=== PATIENT | female | born 1960 | race Caucasian/White ===

== ENCOUNTER 2024-12-09 08:51 | Emergency (ER) | payer BC, SELFPAY ==
[2024-12-09 08:54] VITALS: BP 115/69; PULSE 86; RESP 18; TEMP 36.8; O2SAT 97; BMI 22.7
[2024-12-09 09:24] LABS: MANUAL DIFF FLAG NO
[2024-12-09 09:26] LABS: Hematocrit 39.4 % (37.0-47.0); Hemoglobin 13.4 g/dl (12.0-16.0); Imm Gran Abs Auto 0.02 X10*3/uL (0.00-0.03); Imm Gran Pct Auto 0.3 % (0.0-0.4); Lymphocytes Absolute Auto 0.8 X10*3/uL (1.2-4.9); Mean Corpuscular HGB Conc 34.0 g/dl (31.0-35.0); Mean Corpuscular Hemoglobin 30.6 pg (27.0-33.0); Mean Corpuscular Volume 90.0 fL (80.0-98.0); NRBC Abs Auto 0.000 X10*3/uL (0.0-0.012); NRBC Pct Auto 0.0 /100WBC (0.0-0.2); Platelet Count 208 X10*3/uL (160-400); Red Blood Count 4.38 X10*6/uL (4.20-5.50); White Blood Count 5.9 X10*3/uL (4.8-10.8)
[2024-12-09 09:42] LABS: Alanine Aminotransferase 32 U/L (0-31); Albumin Level 4.4 g/dL (3.5-5.0); Alkaline Phosphatase 62 U/L (39-117); Anion Gap 8 (12-20); Aspartate Amino Transferase 31 U/L (5-31); Blood Urea Nitrogen 9 mg/dL (9-16); Calcium 9.4 mg/dL (8.4-10.2); Carbon Dioxide 29 mmol/L (22-29); Chloride 104 mmol/L (96-108); Creatinine Clr Calc Pharmacy 70.4; Estimated Glomerular Filt Rate > 60; Potassium 3.8 mmol/L (3.3-5.1); Sodium 137 mmol/L (135-145); Total Protein 6.6 g/dL (6.5-8.0)
[2024-12-09 09:52] LABS: IDNOW Serial# 58CA691E
[2024-12-09 09:53] LABS: COVID-19 Test Negative (Negative); IDNOW Serial# 55D5AD1C; Influenza B2 Negative (Negative)
--- NOTE | 2024-12-09 12:25 | ED.GENADULT ---
HPI - General Adult General Chief complaint: General Medical Stated complaint: Cellulitis L arm Time Seen by Provider: 12/09/24 12:25 Source: patient, RN notes reviewed and old records reviewed Mode of arrival: ambulatory Limitations: no limitations History of Present Illness ED Provider: Yanet [facility] narrative: Patient is a 64-year-old female presenting to the ED for evaluation of erythema to left axilla as well as fever last night. Tmax of 101. 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 Reports tick bite to left axilla, which then developed into bullseye. She went to urgent care yesterday and was started on doxycycline and keflex, had labs and tick panel drawn. Has taken 3 total doses of doxy and two doses of keflex. MD complaint: axillary erythema Onset (ago): day(s) Related Data Allergies Allergy/AdvReac Type Severity Reaction Status Date / Time No Known Allergies Allergy Verified 12/09/24 08:59 Review of Systems Review of Systems: as per hpi Yes all other systems are reviewed and are negative Constitutional: Constitutional: Reports as per HPI Physical Exam ED Vital Signs: Vital Signs - 24 hr 12/09/24 08:54 Temperature 98.3 F Pulse Rate 86 Respiratory Rate 18 Blood Pressure 115/69 Pulse Oximetry 97 Oxygen Delivery Method Room Air BMI result Body Mass Index 22.7 Vital signs have been reviewed and appear to be correct. Blood pressure normal. Heart rate normal. Respiratory rate normal. Temperature normal. Oxygen saturation normal. Const General: cooperative, healthy appearing and no acute distress Orientation/consciousness: oriented to person, oriented to place, oriented to time and patient oriented x3 Limitations: no limitations [facility] Head: Yes normocephalic and Yes atraumatic Ears: external ears normal General nose exam: Normal external nose present Face and sinus: Yes face symmetric Mouth: oropharynx normal and moist mucous membranes Throat: Yes uvula midline Eyes Pupils: Equal, round and reactive pupils present Neck Neck: Yes normal visual inspection and Yes supple Chest Chest/axillae images:  1. erythema with mild swelling NOT outside outlined area, no discharge/drainage Resp Effort & Inspection: normal respiratory effort and able to speak in complete sentences Auscultation: clear to auscultation bilaterally Cardio Rate: regular rate Rhythm: regular rhythm Heart sounds: S1 normal heart sound present and S2 normal heart sound present GI Palpation (GI): Soft to palpation and nontender Auscultation: normoactive bowel sounds General: Yes no CVA tenderness Back/Spine/Pelvis Back: no CVA tenderness Skin General skin exam: elasticity normal and turgor normal Neuro General: oriented to person, oriented to place, oriented to time, patient oriented x3, moves all extremities, no focal motor deficits and CN's II-XI intact bilaterally Cranial nerves: Yes Equal, round and reactive pupils present Cognition (Neuro): normal cognition Extrem General: Yes full ROM, Yes no pedal edema and Yes no calf tenderness Psych Mental Status: mental status grossly normal Affect: normal affect Thought process: Normal thought process present Medical Decision Making Medical Decision Making [facility] Narrative: Patient is a 64-year-old female presenting to the ED for evaluation of erythema to left axilla as well as fever last night. On exam patient is awake, A+Ox3, VS WNL, afebrile, normal neurological exam without focal deficits, physical exam findings as above. Given reported symptoms and physical exam findings, initial differential includes but is not limited to erythema migrans, cellulitis. Labs notable for no leukocytosis, no other significant abnormalities. Patient afebrile here and has not taken any antipyretics today. Erythema is not extending beyond outlined area. She has only taken 3 doses of doxy and 2 doses of keflex. Do not feel she requires IV antibiotics at this time. Discussed with patient that she should monitor the outlined area at least once per day, and return if erythema extends beyond the outlined area, should also return for recurrent fevers. Follow up with PCP, as well as UC regarding tick panel results. Complete full courses of abx as prescribed. Patient verbalized understanding of and agreement with plan. Differential Diagnosis Differential Diagnoses: The differential diagnosis associated with the presentation includes as per [facility] Admission/Observation Consideration of admission/observation: Escalation of care including admission/observation considered Patient would have been admitted to the hospital and transferred to appropriate facility had their clinical presentation warranted hospital admission. Lab Data [facility] Lab Attestation statement: I reviewed the patient's lab results. as per [facility] 12/09/24 09:10 12/09/24 09:10 Labs: Lab Results 12/09/24 Range/Units 09:10 WBC 5.9 (4.8-10.8) X10*3/uL RBC 4.38 (4.20-5.50) X10*6/uL Hgb 13.4 (12.0-16.0) g/dl Hct 39.4 (37.0-47.0) % MCV 90.0 (80.0-98.0) fL MCH 30.6 (27.0-33.0) pg MCHC 34.0 (31.0-35.0) g/dl RDW 12.9 (11.0-16.0) % Plt Count 208 (160-400) X10*3/uL MPV 9.8 (9.4-12.3) fL Immature Gran % (Auto) 0.3 (0.0-0.4) % Neut % (Auto) 76.6 H (45-73) % Lymph % (Auto) 12.8 L (20-40) % [place] % (Auto) 9.1 (2-11) % Eos % (Auto) 0.5 (0-4) % Baso % (Auto) 0.7 (0-2) % Lymph # (Auto) 0.8 L (1.2-4.9) X10*3/uL [place] # (Auto) 0.5 (0.1-1.2) X10*3/uL Eos # (Auto) 0.0 (0.0-0.4) X10*3/uL Baso # (Auto) 0.0 (0.0-0.2) X10*3/uL Abs Immat Gran (auto) 0.02 (0.00-0.03) X10*3/uL Absolute Neuts (auto) 4.5 (2.0-8.3) x10*3/uL Absolute Nucleated RBC 0.000 (0.0-0.012) X10*3/uL Nucleated RBC % (auto) 0.0 (0.0-0.2) /100WBC Sodium 137 (135-145) mmol/L Potassium 3.8 (3.3-5.1) mmol/L Chloride 104 (96-108) mmol/L Carbon Dioxide 29 (22-29) mmol/L Anion Gap 8 L (12-20) BUN 9 (9-16) mg/dL Creatinine 0.65 (0.5-1.4) mg/dL Estim Creat Clear Calc 70.4 Estimated GFR > 60 Random Glucose 97 (60-115) mg/dL Calcium 9.4 (8.4-10.2) mg/dL Total Bilirubin 0.3 (0.0-1.0) mg/dL AST 31 (5-31) U/L ALT 32 H (0-31) U/L Alkaline Phosphatase 62 (39-117) U/L Total Protein 6.6 (6.5-8.0) g/dL Albumin 4.4 (3.5-5.0) g/dL COVID-19 ([place]) Negative (Negative) COVID-19 Clin Com See Note Influenza Type A (EBENEZER) Negative (Negative) Influenza Type B (EBENEZER) Negative (Negative) Influenza A & B Note See Note External Record Review External record reviewed: Inpatient record, Office record and Outpatient record Discharge Plan Discharge Clinical Impression: Cellulitis of axilla, left Patient Disposition: Home, Self-Care Instructions: Cellulitis (ED) Additional Instructions: You have been evaluated in the emergency department today for redness and swelling to your underarm, and are currently being treated for a skin infection, also known as cellulitis. If the area of inflammation was outlined today in the ER, please return to the ER immediately if the area of redness increases beyond the border. Please take your prescribed antibiotics as directed for the full course of the medication. You can use Tylenol or ibuprofen per package instructions every 6 hours as needed for pain or fever. If necessary, you can alternate these medications so that you can take one medication every 3 hours. For instance, at noon take ibuprofen, then at 3:00 p.m. take Tylenol, then at 6:00 p.m. take ibuprofen. Please schedule an appointment for follow-up with your primary care physician as soon as possible. Return to the emergency department if you experience recurrent vomiting, fevers greater than 100.4? F, increasing area of redness, warmth around the area, foul-smelling discharge from the area, increased tenderness around the area, or any other concerning symptoms.
--- NOTE | 2024-12-09 12:32 | PC.NURSE ---
Pt roomed to [facility]- right axilla to breas has a large red marked area with bullseye appearance- warm to touch skin intact- pt states she has been on cephalexin and doxy since seen at urgent care but it has worsened in 24 hours. Pt with fever 24 hours ago at home also. No N/V/D. VSS
[2024-12-09 12:37] VITALS: BP 129/89; PULSE 78; RESP 16; O2SAT 98
[2024-12-09 13:24] VITALS: BP 129/89; PULSE 78; RESP 16; TEMP 36.5; O2SAT 98
--- OUTSIDE RECORDS SUMMARY | 2024-12-09 14:25 | XMS_ITS | Encounter Summary ---
Author Organization [facility] Address [address] [place] [address] Phone Care Team Providers Care Remote Advisor Name Role Phone Isma Marquez MD Unavailable [phone] Akira Hudson MD Primary Care Provider + Encounter Details Date Type Department Care Team (Late st Contact Info) Description 10/23/2019 Procedure Pass [facility], [address] [address] Social History Tobacco Use Types Packs/Day Years Used Date Smoking Tobacco: Never Smokeless Tobacco: Never Alcohol Use Standard Drinks/Week Comments Yes 4 (1 standard drink = 0.6 oz pur e alcohol) 2 drinks twice a week Comments Unknown Sex and Gender Information Value Date Recorded Sex Assigned at Female 06/29/2020 8:03 PM EDT Legal Sex Female 9:37 AM EST Gender Identity Choose not to disclose 8:03 PM EDT Sexual Orientation Choose not to disclose 2020 8:03 PM EDT documented as of this encounter Plan of Treatment Not on file documented as of this encounter Visit Diagnoses Not on filedocumented in this encounter Care Teams Remote Advisor Relationship Specialty Start Date End Date Akira Hudson MD [address] [place] [address] PCP - General Family Medicine 02/04/19 Isma Marquez MD [address] [place] [phone] [email or web address] Orthopedic Surgeon Orthopedic Surgery 12/26/18 documented as of this encounter Additional Source Comments The information contained in this document represents components of the legal health record. It is not the complete legal health record.[facility]
--- OUTSIDE RECORDS SUMMARY | 2024-12-09 14:25 | XMS_ITS | Encounter Summary ---
Author Organization [facility] Address [address] [place] [address] Phone Care Team Providers Care Snowboarding Instructor Name Role Phone Isma Marquez MD Unavailable [phone] Akira Hudson MD Primary Care Provider + Encounter Details Date Type Department Care Team (Late st Contact Info) Description 10/28/2019 Ancillary Orders [facility],Outside Imaging [address] [place] [address] System, Provider Not In, [place] [address] Social History Tobacco Use Types Packs/Day Years [...] on file documented as of this encounter Results * MRI Lower Extremity Outside (No Interpretation) (07/31/2018 12:00 AM EDT) Narrative SYSTEMGENERATED, DOCUMENTATION - 10/28/2019 8:12 AM EDT This study is for PACS storage only and not for interpretation. us Provider Not In System PhD IMG OUTSIDE IMAGING W /OUT INTERPRETATION Final Result documented in this encounter Visit Diagnoses Not on filedocumented in this encounter Care Teams Snowboarding Instructor Relationship Specialty Start Date End Date Akira Hudson MD [address] [place] [address] PCP - General Family Medicine 02/04/19 Isma Marquez MD [address] [place] [phone] [email or web address] Orthopedic Surgeon Orthopedic Surgery 12/26/18 documented as of this encounter Additional Source Comments The information contained in this document represents components of the legal health record. It is not the complete legal health record.[facility]
--- OUTSIDE RECORDS SUMMARY | 2024-12-09 14:25 | XMS_ITS | Encounter Summary ---
Author Organization [facility] Address [address] [place] [address] Phone Care Team Providers Care Power Truck Driver Name Role Phone Stu Baron MD Primary Care Provide r Isma Marquez MD Unavailable [phone] Akira Hudson MD Primary Care Provider + Encounter Details Date Type Department Care Team (Late st Contact Info) Description 08/27/2017 Procedure Pass [facility] Imaging [address] [place] [address] Social History Tobacco Use Types Packs/Day Years Used Date Smoking Tobacco: Never Comments Unknown Sex and Gender Information Value [...] on filedocumented in this encounter Care Teams Power Truck Driver Relationship Specialty Start Date End Date Stu Baron MD PCP - General Internal Medicine 03/31/14 02/03/19 Akira Hudson MD [address] [place] [address] PCP - General Family Medicine 02/04/19 Isma Marquez MD [address] [place] [phone] [email or web address] Orthopedic Surgeon Orthopedic Surgery 12/26/18 documented as of this encounter Additional Source Comments The information contained in this document represents components of the legal health record. It is not the complete legal health record.[facility]
--- OUTSIDE RECORDS SUMMARY | 2024-12-09 14:25 | XMS_ITS | Clinical Summary ---
Author Organization [facility] [address] [facility] [facility] Address [address] [place] [address] Phone Care Team Providers Care Associate Theatre Professor Name Role Phone Akira Hudson MD Primary Care Provider [phone] (ENTOCORT EC) 3 mg 24 hr capsuleIndicati ons:Collagenous colitis,Irritab le bowel syndrome (IBS) Take 3 capsules (9 mg total) by mouth 1 (one) time each day in the morning. 90 each 5 03/27/2024 03/27/19 26 Active Encounters Date Type Department Care Team Description 10/10/2024 Telephone Gastroenterology - [address] [address] Martine Hall MD from Last 3 Months Social History Tobacco Use Types Packs/Day Years Used Date Smoking Tobacco: Never Assessed Comments Unknown Sex and Gender Information Value Date Recorded Sex Assigned at Not on file Legal Sex Female 1:16 PM EST Gender Identity Not on file Sexual Orientation Not on file Last Filed Vital Signs Vital Sign Reading Time Taken Comments Blood Pressure - - Pulse - - Temperature - - Respiratory Rate - - Oxygen Saturation - - Inhaled Oxygen Concentration - - Weight 60.3 kg (133 lb) 03/27/2024 8:00 AM EST Height 160 cm (5' 3 ) 03/27/2024 8:00 AM EST Body Mass Index 23.56 03/27/2024 8:00 AM EST Plan of Treatment Upcoming Encounters Date Type Department Care Team ([facility] st Contact Info) Description 04/23/2025 8:20 AM EST Office Visit Gastroenterology - [place] [address] [facility] [address] [place] [address] Liss Moody, GIULIA [address] [facility] [address] [place] [address] Health Maintenance Due Date Last Done Comments Breast Cancer Screening 1960 Colorectal Cancer Screening: Colonoscopy 1960 Falls Risk Assessment 02/15/2024 Hepatitis C Screening 02/15/2024 Osteoporosis Screening (Bone Density Screening) 02/15/2024 Social Influencers of Health Screening 02/15/2024 Depression Screening 03/12/2024 COVID-19 Vaccine ( season) 2024 01/26/2024, 01/29/2023, 01/19/2022, Additional history exists Influenza Vaccine (#1) 2024 , 01/17/2023, 12/14/2021, Additional history exists DTaP,Tdap,and Td Vaccines (4 - Td or Tdap) 06/17/2031 06/16/2021, 03/15/2011, 08/11/1999 RSV Immunization Adult Patients (1 - 1-dose 75+ series) 2033 Zoster Vaccines Completed 09/23/2021, 04/29/2021 Pneumococcal Vaccine: 50+ Years Completed 07/13/2023 HIB Vaccines Aged Out No longer eligi ble based on patient's age to complete this topic HPV Vaccines Aged Out No longer eligi ble based on patient's age to complete this topic Hepatitis A Vaccines Aged Out No long er eligible based on patient's age to complete this topic Hepatitis B Vaccines Aged Out No long er eligible based on patient's age to complete this topic IPV Vaccines Aged Out No longer eligi ble based on patient's age to complete this topic MMR Vaccines Aged Out No longer eligi ble based on patient's age to complete this topic Meningococcal ACWY Vaccine Aged Out N o longer eligible based on patient's age to complete this topic Meningococcal B Vaccine Aged Out No l onger eligible based on patient's age to complete this topic RSV Immunization Patients Under 20 months Aged Out No longer eligible based on patient's age to complete this topic Varicella Vaccines Aged Out No longer eligible based on patient's age to complete this topic Insurance MEDICARE [facility] Care Teams Associate Theatre Professor Relationship Specialty Start Date End Date Akira Hudson MD [address] [facility] [address] [place] [address] PCP - General Family Medicine 03/21/24
--- OUTSIDE RECORDS SUMMARY | 2024-12-09 14:25 | XMS_ITS | Clinical Summary ---
Author Organization [facility] Address [address] [place] [address] Phone Care Team Providers Care American Studies Professor Name Role Phone Isma Marquez MD Unavailable [phone] Akira Hudson MD Primary Care Provider + Allergies No known active allergies Medications CALCIUM CARBONATE (TUMS E-X ORAL) Dose: Not available; Form: Not available; Route: PO; Frequency: Not available; Directions: Not available; Details: Not available; Date: 05/08/2014 5 Active clobetasol (TEMOVATE) 0.05 % cream Apply 1 application topically 2 (two) times a day. 5 Active estradiol (ESTRACE) 0.01 % (0.1 mg/gram) vaginal cream Place 1 g vaginally every 7 days. 5 Active cyanocobalamin 100 MCG tablet Take 1 tablet by mouth daily. 5 Active cholecalciferol (VITAMIN D3) 400 unit tablet Take 1 tablet by mouth daily. 5 Active cholestyramine (QUESTRAN) 4 gram packet Take 1 packet by mouth 2 (two) times a day with meals. Active Lactobacillus rhamnosus GG (CULTURELLE PROBIOTIC) 15 billion cell CpSP Take 1 capsule by mouth daily. Active acetaminophen (TYLENOL) 500 mg capsule Take 2 capsules (1,000 mg total) by mouth every 6 (six) hours as needed for fever. 30 capsule 8 Active aspirin 325 MG tablet Take 1 tablet (325 mg total) by mouth daily. 26 tablet 8 Active oxyCODONE 5 MG immediate release tablet Take 1 tablet (5 mg total) by mouth every 4 (four) hours as needed for moderate pain. Pt. may request partial fill Earliest Fill Date: 10/11/17 10 tablet 8 Active Additional Information Patient not taking.Reported on 11/19/2017 docusate sodium (COLACE) 100 MG capsule Take 1 capsule (100 mg total) by mouth 2 (two) times a day. 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 Lipoma of right lower extremity 10/09/2017 Endometriosis 05/08/2014 Overview (02/16/2015): Endometriosis Lichen sclerosus et atrophicus 04/29/2014 Overview (05/01/2014): Lichen sclerosus et atrophicus Immunizations Immunization Administration Dates Next Due COVID-19 (Pre-01/01) Pfizer Vaccine, mRNA, PF ,06/10/2020 Family History Medical History Relation Comments Uncoded Family History Mother Malignant tumor of vulva Relation Status Comments Mother Cause of : Malignant tumor of vulva Social History Tobacco Use Types Packs/Day Years Used Date Smoking Tobacco: Never Smokeless Tobacco: Never Alcohol Use Standard Drinks/Week Comments Yes 4 (1 standard drink = 0.6 oz pur e alcohol) 2 drinks twice a week Education Answer Date Recorded Are you interested in more education? Not on navarro e 07/07/2022 Are you concerned about learning? Not on file 07/07/2022 No 07/07/2022 No 07/07/2022 Digital Access Answer Date Recorded No 08/06/2022 No 08/06/2022 Reliable internet access at home? Not on file 08/06/2022 Device with a working camera? Not on file Comments Unknown Sex and Gender Information Value Date Recorded Sex Assigned at Female 06/29/2020 8:03 PM EDT Legal Sex Female 9:37 AM EST Gender Identity Choose not to disclose 8:03 PM EDT Sexual Orientation Choose not to disclose 2020 8:03 PM EDT Last Filed Vital Signs Vital Sign Reading Time Taken Comments Blood Pressure 106/62 10/11/2017 7:48 AM EDT Pulse 89 10/11/2017 7:48 AM EDT Temperature 36.4 C (97.6 F) 10/11/2017 7:48 AM EDT Respiratory Rate 18 10/11/2017 7:48 AM EDT Oxygen Saturation 98% 10/11/2017 7:48 AM EDT Inhaled Oxygen Concentration - - Weight 55.8 kg (123 lb) 10/27/2019 3:37 PM EDT Height 160 cm (5' 3 ) 10/27/2019 3:37 PM EDT Body Mass Index 21.79 10/27/2019 3:37 PM EDT Plan of Treatment Health Maintenance Due Date Last Done Comments LIPID PANEL 1960 DEPRESSION SCREENING 1970 HEPATITIS C SCREENING 1976 MAMMOGRAM 1998 COLOGUARD 07/12/2003 COLONOSCOPY 07/12/2003 COLORECTAL CANCER SCREENING 07/12/2003 FIT TEST 07/12/2003 FOBT 07/12/2003 SIGMOIDOSCOPY 07/12/2003 VIRTUAL COLONOSCOPY 07/12/2003 PNEUMOCOCCAL VACCINES (50+ years) (1 of 1 - PCV) 2008 OSTEOPOROSIS SCREENING INITIAL (ONE-TIME) 07/12/2023 INFLUENZA VACCINE (#1) 2024 2, 02/01/2021, 12/25/2019, Additional history exists COVID-19 VACCINE (2024- season) 2024 02/07/2021, 07/01/2020, 06/10/2020 Adult Td,Tdap Booster 06/17/2031 06/16/2021 , 03/15/2011, 08/11/1999 RSV VACCINE (1 - 1-dose 75+ series) 2033 SMOKING STATUS SCREENING (Once After 26 Yrs) Completed 01/21/2018 ZOSTER VACCINES Completed 09/23/2021, 04/29/2021 HEPATITIS A VACCINES Aged Out No long er eligible based on patient's age to complete this topic HIB VACCINES Aged Out No longer eligi ble based on patient's age to complete this topic MENINGOCOCCAL VACCINES (ACWY) Aged Out No longer eligible based on patient's age to complete this topic MENINGOCOCCAL VACCINES (B) Aged Out N o longer eligible based on patient's age to complete this topic Medical Devices Implanted Type Area Asp Net Programmer Device Identifier Shelf Expiration Date Model / Serial / Lot Plate Bone 73mm Tubular One Third With Collar Stainless Steel 6 Hole Ea - [id number] Implanted:Qty: 1 on 10/09/2017 by Isma Marquez MD at [facility] Right: Knee SYNTHES 241.36 / / Screw Bone 3.5x14mm Cortex Self Tapping Fully Threaded Hex Head S/S Ea - [id number] Implanted:Qty: 2 on 10/09/2017 by Isma Marquez MD at [facility] Right: Knee SYNTHES 204.814 / / Screw Bone 3.5x16mm Cortex Self Tapping Fully Threaded Hex Head S/S Ea - [id number] Implanted:Qty: 2 on 10/09/2017 by Isma Marquez MD at [facility] Right: Knee SYNTHES 204.816 / / Screw Bone 3.5x18mm Cortex Self Tapping Fully Threaded Hex Head S/S - [id number] Implanted:Qty: 1 on 10/09/2017 by Isma Marquez MD at [facility] Right: Knee SYNTHES 204.818 / / Screw Bone 3.5x20mm Cortex Self Tapping Fully Threaded Hex Head S/S - [id number] Implanted:Qty: 1 on 10/09/2017 by Isma Marquez MD at [facility] Right: Knee SYNTHES 204.820 / / Insurance [facility] Member Subscriber Plan / Payer (Ef fective 2021-Present) Name:Naomi Marquez Relation to Subscriber:Self Name:Naomi Marquez Payer ID:[id number] (NA) Type:HMO Address: [id number] [place] [address] [place] [address] [place] [address] [place] [address] [facility] Advance Directives For more information, please contact: [phone] (9AM - 5PM [place], Sunday-Sunday) * Full Code (Presumed) (Latest Code Status on File) Date Activated Date Inactivated Comments 10/09/2017 11:01 AM 10/11/2017 4:54 PM Care Teams American Studies Professor Relationship Specialty Start Date End Date Akira Hudosn MD [address] [place] [phone] PCP - General Family Medicine 02/04/19 Isma Marquez MD [address] [place] [phone] [email or web address] Orthopedic Surgeon Orthopedic Surgery 12/26/18 Additional Source Comments The information contained in this document represents components of the legal health record. It is not the complete legal health record.[facility]
--- OUTSIDE RECORDS SUMMARY | 2024-12-09 14:25 | XMS_ITS | Patient Health Record ---
Author Organization [facility] Address [address] [place] [address] Care Team Providers Care Steel Unloader Name Role Phone Akira Hudson MD Primary Care Provider Unava ilable Aaron Isaac Unavailable [phone] Reason For Referral No Information Medications Medication SIG (Take, Route, Frequency, Duration) Notes Start Date End Date Status Tylenol 1 tab Oral Active Motrin Active Excedrin Extra Strength 250-250-65 MG 2 tablets as needed Orally every 6 hrs Active Krill Oil 500 MG Orally Act james Vitamin D3 2000 UNIT 1 capsule Orally On ce a day Active Glucosamine Chondr 1500 Complx - Orally Active Social History Tobacco Use: Social History Observation Description Date Details (start date - stop date) Never Smoker NA - NA Tobacco Use/Smoking Question Answer Notes Are you a: nonsmoker Alcohol Screen Question Answer Notes Did you have a drink containing alcohol in the p ast year? Yes Points 0 Interpretation Negative Tobacco use other than smoking: Question Answer Notes Are you an other tobacco user? No Plan Of Treatment No Information Insurance Providers Payer Name Payer Address Payer Phone Subscriber Number Group Number Insured Name Patient Relationship to Insured Coverage Start Date Coverage End Date [facility] [address] [place] [address] [id number] Naomi Marquez Self - patient is the insured Medical (General) History Medical History History ICD Code Chicken pox Eosinophilic esophagitis Surgical History Surgery Date(Month/Year) Appendectomy 03/1971
--- OUTSIDE RECORDS SUMMARY | 2024-12-09 14:25 | XMS_ITS | Encounter Summary ---
Author Organization [facility] Address [address] [place] [address] Phone Care Team Providers Care Adjunct Psychology Instructor Name Role Phone Isma Marquez MD Unavailable [phone] Akira Hudson MD Primary Care Provider + Encounter Details Date Type Department Care Team (Late st Contact Info) Description 08/31/2022 Procedure Pass [facility], [address] [address] Social History Tobacco Use Types Packs/Day Years [...] on filedocumented in this encounter Care Teams Adjunct Psychology Instructor Relationship Specialty Start Date End Date Akira Hudsno MD [address] [place] [phone] PCP - General Family Medicine 02/04/19 Isma Marquez MD [address] [place] [id number] [email or web address] Orthopedic Surgeon Orthopedic Surgery 12/26/18 documented as of this encounter Additional Source Comments The information contained in this document represents components of the legal health record. It is not the complete legal health record.[facility]
--- OUTSIDE RECORDS SUMMARY | 2024-12-09 14:25 | XMS_ITS | Patient Health Record ---
Author Organization [facility] Address [address] [address] Care Team Providers Care Farm Management Agent Name Role Phone CATALINA AG MD Primary Care Provider Unava Coby Junior Unavailable [phone] Allergies No Known Allergies Results Component Value Reference Range Notes Urinalysis Reviewed date:04/16/2024 08:36:26 AM Interpretation: Performing Lab: Notes/Report: PH 8.0 PROTEIN Neg GLUCOSE Neg BLOOD Neg Reason For Referral No Information Medications Medication SIG (Take, Route, Frequency, Duration) Notes Start Date End Date Status Multi-Vitamin Daily - 1 tablet Orally On ce a day Active Caltrate 600 1500 (600 Ca) MG as directed Orally Active Turmeric 500 MG 2 tablets Orally Onc e a day Active Clobetasol Propionate 0.05 % 1 application to affected area Externally Q OTHER NIGHT FOR A MONTH THEN TWO TIMES A WEEK; Duration: 90 days 04/16/2024 Active Estradiol Vaginal Cream 0.01% 1 Gram to the affected area Vaginal/Vulva Twice a week; Duration: 90 Days 04/16/2024 Active Clobetasol Propionate 0.05 % 1 application to affected area Externally ONCE A WEEK; Duration: 90 DAYS 04/05/2022 Not-Taking Estradiol Vaginal Cream 0.01% 1 Gram to the affected area Vaginal/Vulva Twice a week; Duration: 90 Days 04/05/2022 Active Immunizations Vaccine Route Administration Date Status Comme nts Influenza, live, intranasal Intramuscular 04/03/2011 Sheng patiño Social History Tobacco Use: Social History Observation Description Date Details (start date - stop date) Never Smoker NA - NA AUDIT-C (Standard) Question Answer Notes Did you have a drink contain ing alcohol in the past year? Yes How often did you have a dri nk containing alcohol in the past year? Never (0 point) How many drinks did you have on a typical day when you were drinking in the past year? 1 or 2 drinks (0 point) How often did you have six o r more drinks on one occasion in the past year? Less than monthly (1 point) Points 1 Interpretation Negative Tobacco Control (Standard) Question Answer Notes Tobacco use: Nonsmoker Section Notes: MARITAL STATUS: CHILDREN: none LIVES WITH: spouse OCCUPATION: employed full-time NUTRITION: average diet EXERCISE: regular weight lifting / resistance exercise, regular cardio SEXUAL ACTIVITY: monogamous relationship. CONTRACEPTION: ablation SMOKING: none ALCOHOL: rare alcohol, occasional alcohol TEXT MESSAGING WHILE DRIVING: no SUNSCREEN: yes ILLICIT DRUGS: no SEATBEALT: yes Problems Problem Type SNOMED Code ICD Code Onset Dates Problem Status W/U Status Risk Notes Problem Postmenopausal atrophic vaginitis (08454302) Postmenopausal atrophic vaginitis (N95.2) Active confirmed Problem Age-related osteoporosis (056484065) Age-related osteoporosis without current pathological fracture (M81.0) Active confirmed Problem Localized morphea (012839652) Lichen sclerosus et atrophicus (L90.0) Active confirmed Problem Endometriosis of ovary (734817611) Endometriosis of ovary (N80.1) Active confirmed Problem Atrophy of vulva (061411465) Atrophy of vulva (N90.5) Active confirmed Problem Candidal vulvovaginitis (46423244) Candidiasis of vulva and vagina (112.1) Active confirmed Other Problem Chronic ischemic heart disease (499328645) Unspecified chronic ischemic heart disease (414.9) Active confirmed Major Problem Endometriosis (714234825) Endometriosis, site unspecified (617.9) Active confirmed Major Problem Cyst of ovary (08874536) Other and unspecified ovarian cyst (620.2) Active confirmed Major Problem Menopausal symptom (17021957) Symptomatic menopausal or female climacteric states (627.2) Active confirmed Major Problem Postmenopausal atrophic vaginitis (04950892) Postmenopausal atrophic vaginitis (627.3) Active confirmed Diag Problem 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) Active confirmed Diag Problem Joint pain (64870594) Pain in joint, site unspecified (719.40) Active confirmed Diag Problem General examination of patient (303896207) Routine general medical examination at health care facility (V70.0) Active confirmed Diag Problem Gynecological examination normal (831790670921797) Routine gynecological examination (V72.31) Active confirmed Major Problem Screening for malignant neoplasm of colon (018944460) Special screening for malignant neoplasms, colon (V76.51) Active confirmed Major Vital Signs Temperature 97.5 degrees Fahrenheit 04/16/2024 Blood pressure diastolic 70 mm Hg 04/16/2024 Height 62 in 04/16/2024 Blood pressure systolic 110 mm Hg 04/16/2024 Weight 129 lbs 04/16/2024 BMI 23.59 kg/m2 04/16/2024 Encounters Encounter Location Date Provider Diagnosis [address] [address] 04/16/2024 Coby Wyatt Encounter for gynecological examination (general) (routine) without abnormal findings Z01.419 ; Encounter for screening mammogram for malignant neoplasm of breast Z12.31 ; Age-related osteoporosis without current pathological fracture M81.0 ; Lichen sclerosus et atrophicus L90.0 ; Postmenopausal atrophic vaginitis N95.2 and Personal history of other diseases of the female genital tract Z87.42 Assessments Encounter Date Diagnosis (ICD Code) Assessment Notes Treatment Notes Treatment Clinical Notes Section Notes 04/16/2024 Encounter for gynecological examination (general) (routine) without abnormal findings (ICD-10 - Z01.419) NO PAP TEST, DUE IN 2026. 04/16/2024 Encounter for screening mammogram for malignant neoplasm of breast (ICD-10 - Z12.31) REGULAR MAMMOGRAMS AND SBE'S WERE RECOMMENDED. 04/16/2024 Age-related osteoporosis without current pathological fracture (ICD-10 - M81.0) DISCUSSED HER LAST BMD AND OSTEOPOROSIS AND ITS IMPACT ON HER HEALTH. ADEQUATE CALCIUM AND VIT D. WEIGHT BEARING EXERCISES. OSTEO PRECAUTIONS. REPEAT BMD IN 2025. 04/16/2024 Lichen sclerosus et atrophicus (ICD-10 - L90.0) DISCUSSED FINDINGS. APPLY CLOBETASOL TO AFFECTED AREA Q OTHER NIGHT FOR A MONTH, THEN TWICE WEEKLY HER MAINTENANCE DOSE. CHECK VULVA Q MONTH AND INCREASE OR DECREASE DOSE NEEDED. 04/16/2024 Postmenopausal atrophic vaginitis (ICD-10 - N95.2) CONTINUE ESTRADIOL CREAM. 04/16/2024 Personal history of other diseases of the female genital tract (ICD-10 - Z87.42) DISCUSSED PREVIOUS HX OF ENDOMETRIAL CELLS ON PAP TEST. THIS HAS NOT RECURRED. SHE HAS NO HX OF POSTMENOPAUSAL BLEEDING. Plan Of Treatment Pending Test Test Name Order Date MAMMOGRAM, SCREENING 04/01/2020 MAMMOGRAM, SCREENING 04/04/2021 MAMMOGRAM, SCREENING 04/05/2022 MAMMOGRAM, SCREENING 04/11/2023 MAMMOGRAM, SCREENING 04/16/2024 Urinalysis 04/11/2023 Urinalysis 04/04/2021 Ultrasound : Pelvic 03/09/2016 Vulvar Biopsy 04/06/2014 25OH VITAMIN D 11/07/2018 CANC ANT-125 12/30/2014 CEA, PERITONEAL FLUID 12/30/2014 COMPREHENSIVE METABOLIC PANEL 11/07/2018 N-TELOPEPTIDE CROSS 11/07/2018 PTH, INTACT 11/07/2018 TSH 11/07/2018 BONE DENSITY 04/05/2022 BONE DENSITY 04/16/2024 BONE DENSITY 04/01/2020 MM Digital Mammo Screening 03/09/2016 MM Digital Mammo Screening 04/01/2020 MM Digital Mammo Screening 04/05/2022 MM Digital Mammo Screening 04/04/2021 MM Digital Mammo Screening 04/16/2024 MM Digital Mammo Screening 04/11/2023 Next Appt Details Provider Name:Coby lynn, 04/22/2025 08:00:00 AM, [address] [facility], [address], [place], [address], Insurance Providers Payer Name Payer Address Payer Phone Subscriber Number Group Number Insured Name Patient Relationship to Insured Coverage Start Date Coverage End Date [employer] [address] [place] [address] [id number] MOUNIKA CARDONA Self - patient is the insured Medical (General) History Medical History History ICD Code Pain in unspecified joint M25.50 Postmenopausal atrophic vaginitis N95.2 Lichen sclerosus et atrophicus L90.0 Chronic ischemic heart disease, unspecif ied I25.9 Endometriosis, unspecified N80.9 Unspecified ovarian cysts N83.20 Menopausal and female climacteric states N95.1 Candidiasis of vulva and vagina B37.3 Atrophy of vulva N90.5 Lymphocystic Colitis Age-related osteoporosis without current pathological fracture M81.0 Endometriosis of ovary N80.1 Other abnormal cytological findings on s pecimens from cervix uteri R87.618 Disorder of bone density and structure, unspecified M85.9 Surgical History Surgery Date(Month/Year) Ablation Appendectomy Colonoscopy D & C Vulvar Biopsy - Lichen Sclerosis 04/03/14 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
--- OUTSIDE RECORDS SUMMARY | 2024-12-09 14:25 | XMS_ITS | Encounter Summary ---
Author Organization [facility] Address [address] [place] [address] Phone Care Team Providers Care Healthcare Economics Manager Name Role Phone Stu Baron MD Primary Care Provide r Isma Marquez MD Unavailable [phone] Akira Hudson MD Primary Care Provider + Encounter Details Date Type Department Care Team (Late st Contact Info) Description 10/09/2017 Procedure [place] [facility] [address] [place] [phone] Social History Tobacco Use Types Packs/Day Years [...] on filedocumented in this encounter Care Teams Healthcare Economics Manager Relationship Specialty Start Date End Date Stu Baron MD PCP - General Internal Medicine 03/31/14 02/03/19 Akira Hudson MD [address] [place] [phone] PCP - General Family Medicine 02/04/19 Isma Marquez MD [address] [place] [phone] [email or web address] Orthopedic Surgeon Orthopedic Surgery 12/26/18 documented as of this encounter Additional Source Comments The information contained in this document represents components of the legal health record. It is not the complete legal health record.[facility]
--- OUTSIDE RECORDS SUMMARY | 2024-12-09 14:25 | XMS_ITS | Encounter Summary ---
Author Organization [facility] Address [address] [place] [address] Phone Care Team Providers Care Staff Physical Therapy Assistant Name Role Phone Stu Baron MD Primary Care Provide r Isma Marquez MD Unavailable [phone] Akira Hudson MD Primary Care Provider + Encounter Details Date Type Department Care Team (Late st Contact Info) Description 08/08/2018 Procedure Pass [facility] [address] [place] [address] Social History Tobacco Use Types Packs/Day Years [...] on filedocumented in this encounter Care Teams Staff Physical Therapy Assistant Relationship Specialty Start Date End Date Stu Baron MD PCP - General Internal Medicine 03/31/14 02/03/19 Akira Hudson MD [address] [place] [address] PCP - General Family Medicine 02/04/19 Isma Marquez MD [address] [place] [phone] [email or web address] Orthopedic Surgeon Orthopedic Surgery 12/26/18 documented as of this encounter Additional Source Comments The information contained in this document represents components of the legal health record. It is not the complete legal health record.[facility]
[2024-12-10 06:39] LABS: Lyme Abs Screen <0.90 index
[2024-12-10 22:48] LABS: A. Phagocytphilium DNA,RT-PCR NOT DETECTED (NOT DETECTED); Babesia Microti DNA, RT-PCR NOT DETECTED (NOT DETECTED); Borrelia Miyamotoi,DNA RT-PCR NOT DETECTED (NOT DETECTED); E.Chaffeensis DNA RT-PCR NOT DETECTED (NOT DETECTED); Lyme(Borrelia ssp)DNA RT-PCR NOT DETECTED (NOT DETECTED)
== END 2024-12-09 13:25 | disposition home or self-care (01) ==
LOC: HO.ED 13:10
PROVIDERS: Physician Assistant; Emergency Provider Emergency Medicine; PCP Family Medicine
DX: L03.112 Cellulitis of left axilla (principal); R50.9 Fever, unspecified; Z03.818 Encounter for observation for suspected exposure to other biological agents ruled out
CPT/HCPCS: 36415; 80053; 85025; 86617; 86618; 87468; 87469; 87478; 87484; 87502; 87635; 87798; 99283; 99284